=== PATIENT | male | born 1935 | race Caucasian/White ===

== ENCOUNTER 2018-11-27 19:40 | Inpatient (IN) | payer BC, MEDICARE ==
--- NOTE | 2018-11-27 19:58 | ERNOTE ---
<Ludin Peck - Last Filed: 11/27/18 19:48> Neuro HPI ER Record Date of Service: 11/27/18 Presenting Symptoms: weakness, confusion, difficulty walking, difficulty standing Time Seen by Provider: 11/27/18 19:45 Source: EMS Exam Limitations: clinical condition Home Medications: HOME MEDICATIONS Allopurinol [Zyloprim (Allopurinol)] 200 mg PO DAILY 11/27/18 [Last Taken Unknown] Aspirin [Aspirin EC] 81 mg PO DAILY 11/27/18 [Last Taken Unknown] Benazepril HCl 5 mg PO DAILY 11/27/18 [Last Taken Unknown] Calc/D3/Mag/Zn/Marline/Luis Eduardo/[place] [Calcium 600 mg Plus Vit D Tab] 1 ea PO QPM 11/27/18 [Last Taken Unknown] DULoxetine HCL [Cymbalta] 30 mg PO DAILY PRN 11/27/18 [Last Taken Unknown] Finasteride [Proscar] 5 mg PO DAILY 11/27/18 [Last Taken Unknown] Glucosam/Chondr/Collagn/Hyalur [Glucosamine & Chondroitin Cap] 1 ea PO DAILY 11/27/18 [Last Taken Unknown] HYDROcodone/ACETAMINOPHEN [[place] 10-325 Tablet] 1 ea PO BID PRN 11/27/18 [Last Taken Unknown] Isosorbide Mononitrate [Imdur] 30 mg PO DAILY 11/27/18 [Last Taken Unknown] Magnesium 100 mg PO BID 11/27/18 [Last Taken Unknown] Methylcellulose [Citrucel] 479 gm PO DAILY 11/27/18 [Last Taken Unknown] Metoprolol Tartrate [Lopressor] 50 mg PO BID 11/27/18 [Last Taken Unknown] Modafinil [Provigil] 100 mg PO BID PRN 11/27/18 [Last Taken Unknown] Nitroglycerin 0.4 mg SUBLINGUAL Q5M PRN 11/27/18 [Last Taken Unknown] [place]-3 Acid Ethyl Esters [Lovaza] 2 gm PO BID 11/27/18 [Last Taken Unknown] Rivaroxaban [Xarelto] 15 mg PO QPM 11/27/18 [Last Taken Unknown] Torsemide [Demadex] 10 mg PO PRN PRN 11/27/18 [Last Taken Unknown] rOPINIRole HCL [Requip] 0.25 mg PO QPM 11/27/18 [Last Taken Unknown] - History of Present Illness Narrative: patient last seen on thursday , friends went to check patient on floor,unable to understand patient speech garbled Onset: cannot confirm onset Severity: severe Context: injury - head - Character of Deficits Additional Deficits: Present: impaired speech, difficulty swallowing, decrease ability to stand, decrease ability to walk, off balance Baseline Cognition: Present: alert, oriented x 4, alert but disoriented to time Baseline Gait: Present: walks w/o assistance Review of Systems - Narrative Narrative: unable to obtaiin ros due to patient condition - Review of Systems Constitutional: Present: See HPI, weakness, fatigue, malaise EYE: Present: no symptoms reported ENT: Present: no symptoms reported Respiratory: Present: no symptoms reported Cardiology: Present: no symptoms reported Gastrointestinal/Abdominal: Present: no symptoms reported Genitourinary: Present: no symptoms reported Musculoskeletal: Present: no symptoms reported Skin: Present: no symptoms reported Neurological: Present: no symptoms reported Endocrine: Present: no symptoms reported Hematologic/Lymphatic: Present: no symptoms reported Psych: Present: no symptoms reported All Other Systems: All systems neg except as marked Social History: Preferred Language Ugandan No Social History Section defined Physical Exam - Physical Exam General Appearance: Present: moderate distress, lethargic Head Exam: Present: other - abraision to left yazdanism Eye Exam: Normal inspection: bilateral, PERRL: bilateral, EOMI: bilateral Ears, Nose, Throat: Present: normal ENT inspection, normal pharynx Neck: Present: normal inspection, nontender Respiratory: Present: no respiratory distress, normal breath sounds, no accessory muscle use, chest nontender, lungs clear Cardiovascular/Chest: Present: tachycardia Gastrointestinal/Abdominal: Present: normal bowel sounds, nontender, nondistended, soft, no organomegaly, other - decubitus ulcer to left chest wall Back Exam: Present: normal inspection Extremity Exam: Present: normal inspection Neurological Exam: Present: disoriented to person, disoriented to time, disoriented to place, disoriented to situation Raymond Coma Scale - Assess Eye Opening: To Voice Motor: Localizes to Pain Verbal: Confused - Total Coma Scale Total: 12 Progress - Date and Time Seen: Date and Time: 11/27/18 19:53 to be admitted - Vital Signs Patient's Vital Signs:: I have reviewed the patient's vital signs. - Transfer of Care Physician Sign Out: Ludin Peck Receiving Physician: Poonam Santiago Expected Disposition: Admit Plan - Plan Plan: to be admitted Departure Clinical Impression: CVA (cerebral vascular accident) - Departure Disposition: Still a patient Condition: Serious Referrals: Che Llanos, BRUNA [Primary Care Provider] - <Poonam Santiago - Last Filed: 11/27/18 21:29> Neuro HPI ER Record Immunizations: IMMUNIZATION HX Immunizations Up to Date Yes Medical History (Last Updated 11/27/18 @ 20:01 by Kayla Purvis, RN) Anticoagulant long-term use BPH (benign prostatic hyperplasia) Family history unknown Gout Hypertension Myocardial infarct Neuropathy Restless leg syndrome Surgical History: Surgical History (Last Updated 11/27/18 @ 20:02 by Kayla Purvis, RN) Surgical history unknown Family History: Family History (Last Updated 11/27/18 @ 20:02 by Kayla Purvis, RN) Other Family history unknown Social History: Preferred Language Ugandan Do you have any sikhism or No cultural preference? Smoking Status Smoker, status unknown No Social History Section defined Progress - Vital Signs Vital Signs: Vital Signs 11/27/18 19:41 Temperature 36.1 C Pulse Rate 151 H Respiratory Rate 22 H Blood Pressure 155/91 H O2 Sat by Pulse Oximetry 93 Plan - Plan Plan: Taking over for Dr. Richar Perdomo, stroke workup, stroke symptoms A Fib RVR 147 rate on EKG. patient has stroke symptoms, going to CT scan. CT shows acute infarct in the right MCA distribution. Consider CTA neck and head for further evaluation if clinically indicated. Patient is in A Fib, will administer cardizem drip after cardizem bolus, and he is anticoagulated with Rivaroxiban. Discussed with cousins present, they were called to his apartment, he wasnt answering the phone, his daughter was trying to call him from [place]. His cousins came in his residence, and he was stuck between his motorized wheelchair and the door on the ground. unknown how long he was down. Admitted to Dr. Eli 1) Acute stroke 2) Acute renal failure 3) Rhabdomyolysis 4) Lactic acidosis
[2018-11-27 20:26] LABS: Hematocrit 50.9 % (42.0-52.0); Hemoglobin 16.9 gm/dL (13.5-18.0); Mean Cell Volume 86.1 fl (78-100); Mean Corpuscular Hemoglobin 28.6 pg (27-31); Mean Corpuscular Hgb Conc 33.2 g/dl (32-36); Neutrophil # 10.9 K/mm3 (1.3-6.0); Neutrophil % 81.2 % (42-75.0); Platelet Count 202 K/mm3 (150-450); Red Blood Count 5.91 M/mm3 (4.7-6.0); Red Cell Distribution Width 17.4 % (11.5-14.0); White Blood Count 13.4 K/mm3 (4.0-10.5)
[2018-11-27] MEDS ORDERED: DILTIAZEM HCL 5 MG/ML VIAL IV ONE (20:34)
[2018-11-27] MEDS ORDERED: DILTIAZEM HCL 125 MG in DEXTROSE 5 % IN WATER 100 ML IV PRN ×2 (20:35)
[2018-11-27] MEDS ORDERED: NORMAL SALINE 1,000 ML IV ONE ×2 (20:54→21:28)
[2018-11-27 20:55] LABS: Albumin * 2.7 gm/dl (3.4-5.0); Anion Gap 22.4 mmol/L (6.8-13.8); BUN/Creatinine Ratio 29.2 (9.0-21.6); Bilirubin, Total 0.8 mg/dL (0.0-1.1); Ca. Corrected For Albumin 9.6 mg/dL (8.4-10.2); Calcium * 8.9 mg/dL (7.9-10.9); Carbon Dioxide 17.5 mmol/L (24-32.6); Potassium 4.9 mmol/L (3.4-4.6); Total Protein 7.2 gm/dL (6.2-8.2)
[2018-11-27 21:10] LABS: Urine Appearance Slightly Cloudy (CLEAR); Urine Bilirubin Negative (NEGATIVE); Urine Blood 250 /ul (NEGATIVE); Urine Color Yellow; Urine Ketone Negative (NEGATIVE)
[2018-11-27 21:11] LABS: Urine Nitrite Negative (NEGATIVE); Urine Protein 100 mg/dL (NEGATIVE); Urine RBC >50 /hpf (0-5); Urine Urobilinogen Normal (NORMAL); Urine WBC 0-5 /hpf (0-5)
[2018-11-27 21:13] LABS: Urine Amorphous Sediment Few - 1+ (NONE-FEW); Urine Bacteria TRACE
[2018-11-27 21:22] LABS: CRP 21.1 mg/dL (0.0-0.9)
[2018-11-27] MEDS: NORMAL SALINE 1,000 ML IV PRN (23:24)
[2018-11-28] MEDS ORDERED: DILTIAZEM HCL 5 MG/ML VIAL IV ONE
[2018-11-28] MEDS ORDERED: ACETAMINOPHEN 325 MG TABLET PO ONE (00:01)
[2018-11-28] MEDS ORDERED: traMADol HCL 50 MG TABLET PO ONE (00:08)
[2018-11-28] MEDS: MUPIROCIN 22 APPL TUBE TP SCH ×3 (00:34→20:52)
[2018-11-28] MEDS: DILTIAZEM HCL 30 MG TABLET PO SCH ×2 (01:54→06:47)
[2018-11-28 06:48] LABS: Hematocrit 45.7 % (42.0-52.0); Hemoglobin 15.3 gm/dL (13.5-18.0); Mean Cell Volume 85.9 fl (78-100); Mean Corpuscular Hemoglobin 28.8 pg (27-31); Mean Corpuscular Hgb Conc 33.5 g/dl (32-36); Neutrophil # 8.7 K/mm3 (1.3-6.0); Neutrophil % 80.3 % (42-75.0); Platelet Count 165 K/mm3 (150-450); Red Blood Count 5.32 M/mm3 (4.7-6.0); Red Cell Distribution Width 17.1 % (11.5-14.0); White Blood Count 10.9 K/mm3 (4.0-10.5)
[2018-11-28] MEDS: NORMAL SALINE 1,000 ML IV PRN (06:48)
[2018-11-28 07:18] LABS: Albumin * 2.5 gm/dl (3.4-5.0); Anion Gap 18.1 mmol/L (6.8-13.8); BUN/Creatinine Ratio 33.6 (9.0-21.6); Bilirubin, Total 0.8 mg/dL (0.0-1.1); Ca. Corrected For Albumin 9.4 mg/dL (8.4-10.2); Calcium * 8.5 mg/dL (7.9-10.9); Carbon Dioxide 22.6 mmol/L (24-32.6); Potassium 3.7 mmol/L (3.4-4.6); Total Protein 6.7 gm/dL (6.2-8.2)
[2018-11-28] MEDS: DEXTROSE 5%-0.5 NORMAL SALINE 1,000 ML IV PRN ×2 (11:23→20:59)
[2018-11-28] MEDS: ISOSORBIDE MONONITRATE 30 MG TAB.SR.24H PO SCH (12:14)
[2018-11-28] MEDS: METOPROLOL TARTRATE 50 MG TABLET PO SCH (12:15)
[2018-11-28] MEDS: FINASTERIDE 5 MG TABLET PO SCH (12:15)
--- NOTE | 2018-11-28 12:24 | HP ---
Chief Complaint - Chief Complaint Date of Service: 11/28/18 Time of Service: 11:40 Chief Complaint: Confusion and weakness History of Present Illness: This is an 83-year-old male with a past medical history of BPH, hypertension, gout, neuropathy, restless leg syndrome, long-term anticoagulation use. Who presents from home with confusion and weakness. He was last seen normal 3 days prior to presentation. His daughter who lives in [place] was trying to get a hold of him via the phone but he was not answering, therefore she called his cousins who came to check on him. His cousin found him on the floor stuck between his motorized wheelchair and the daughter. Nobody knows how long he was down. In the emergency department he was found to be in A. fib with RVR heart rate of 147. He was confused with garbled speech. CT head was done that showed loss of faria-white differentiation of the right superior temporal lobe and the right parietal lobe which could represent acute/subacute infarct versus chronic infarct. He had no focal deficits on exam. He was given Cardizem with good resolution of his tachycardia. He was found to also have rhabdomyolysis with elevated CK in the 7000's and was given IV fluid boluses. Lactic acid was also found to be elevated. He was also seen to have abnormal renal function likely secondary to the rhabdo.He was admitted to the inpatient [facility] for further evaluation and monitoring. Medical History (Last Reviewed 11/27/18 @ 22:57 by Ifrah Marcos RN) Anticoagulant long-term use BPH (benign prostatic hyperplasia) Family history unknown Gout Hypertension Myocardial infarct Neuropathy Restless leg syndrome Surgical History: Surgical History (Last Reviewed 11/27/18 @ 22:56 by Ifrah Marcos RN) Surgical history unknown Family History: Family History (Last Reviewed 11/27/18 @ 22:56 by Ifrah Marcos RN) Other Family history unknown Social History: Patient Lives/Resources Home Utilized Occupation Retired Preferred Language Puerto Rican Do you have any nondenominational or No cultural preference? Smoking Status Unknown if ever smoked Have you smoked in the past 12 No: Unknown months No Social History Section defined Review Of Systems (GEN) - Review of Systems Generalized/Overall Review: Present: Weakness, Fatigue Respiratory: Absent: Shortness of Breath Cardiac: Absent: Chest Pain Abdominal: Absent: Nausea, Vomiting, Abdominal Pain Genitourinary: Present: Incontinent Musculoskeletal: Present: Joint Pain Skin: Present: Lesions Misc: All systems neg except as marked Immunizations: IMMUNIZATION HX Immunizations Up to Date Yes Allergies/Adverse Reactions: Allergies Allergy/AdvReac Type Severity Reaction Status Date / Time Cephalosporins Allergy Verified 11/27/18 22:52 Home Medications: HOME MEDICATIONS Allopurinol [Zyloprim (Allopurinol)] 200 mg PO DAILY 11/27/18 [Last Taken Unknown] Aspirin [Aspirin EC] 81 mg PO DAILY 11/27/18 [Last Taken Unknown] Benazepril HCl 5 mg PO DAILY 11/27/18 [Last Taken Unknown] Calc/D3/Mag/Zn/Marline/Luis Eduardo/[place] [Calcium 600 mg Plus Vit D Tab] 1 ea PO QPM 11/27/18 [Last Taken Unknown] DULoxetine HCL [Cymbalta] 30 mg PO DAILY PRN 11/27/18 [Last Taken Unknown] Finasteride [Proscar] 5 mg PO DAILY 11/27/18 [Last Taken Unknown] Glucosam/Chondr/Collagn/Hyalur [Glucosamine & Chondroitin Cap] 1 ea PO DAILY 11/27/18 [Last Taken Unknown] HYDROcodone/ACETAMINOPHEN [[place] 10-325 Tablet] 1 ea PO BID PRN 11/27/18 [Last Taken Unknown] Isosorbide Mononitrate [Imdur] 30 mg PO DAILY 11/27/18 [Last Taken Unknown] Magnesium 100 mg PO BID 11/27/18 [Last Taken Unknown] Methylcellulose [Citrucel] 479 gm PO DAILY 11/27/18 [Last Taken Unknown] Metoprolol Tartrate [Lopressor] 50 mg PO BID 11/27/18 [Last Taken Unknown] Modafinil [Provigil] 100 mg PO BID PRN 11/27/18 [Last Taken Unknown] Nitroglycerin 0.4 mg SUBLINGUAL Q5M PRN 11/27/18 [Last Taken Unknown] [place]-3 Acid Ethyl Esters [Lovaza] 2 gm PO BID 11/27/18 [Last Taken Unknown] Rivaroxaban [Xarelto] 15 mg PO QPM 11/27/18 [Last Taken Unknown] Torsemide [Demadex] 10 mg PO PRN PRN 11/27/18 [Last Taken Unknown] rOPINIRole HCL [Requip] 0.25 mg PO QPM 11/27/18 [Last Taken Unknown] Exam - Exam Vital Signs: Vital Signs - Last Taken Temp 36.0 C 11/28/18 10:38 Pulse 118 H 11/28/18 11:07 Resp 24 H 11/28/18 10:38 BP 137/80 11/28/18 10:38 Pulse Ox 100 11/28/18 10:38 Constitutional: Present: Alert, Oriented x3, Cooperative ENT Exam: Present: hard of hearing Neck: Present: non-tender, supple, trachea midline. Absent: lymphadenopathy (R), lymphadenopathy (L) Respiratory: Present: lungs clear. Absent: no accessory muscle use, crackles, rhonchi, wheezing Cardiovascular/Chest: Present: normal peripheral pulses, no murmur, irregularly irregular Peripheral Pulses: dorsalis-pedis (R): 2+, dorsalis-pedis (L): 2+ Abdomen: Present: Normal bowel sounds, soft, nontender Extremity: Present: no pedal edema Skin Exam: Present: normal color, warm/dry, other - Multiple bruises on upper extremities (forearms, right knee). Multiple skin tears and large wounds on left face, left upper abdomen, left upper arm. 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 Absent: motor weakness Diagnostic Studies: Abnormal Lab Results 11/27/18 11/27/18 11/27/18 Range/Units 20:20 20:20 20:20 WBC 13.4 H (4.0-10.5) K/mm3 RDW 17.4 H (11.5-14.0) % Immature Gran % (Auto) 0.60 H (0.001-0.429) % Immature Gran # (Auto) 0.08 H (0.000-0.0310) K/mm3 Neutrophils % 81.2 H (42-75.0) % Lymphocytes % 7.5 L (20-51) % Monocytes % 10.4 H (0.0-9) % Neutrophils # 10.9 H (1.3-6.0) K/mm3 Lymphocytes # 1.00 L (1.5-3.5) k/mm3 Monocytes # 1.4 H (0.0-1.0) k/mm3 Sodium (132-142) mmol/L Plasma Sodium 143 H (130-142) mmol/L Potassium 4.9 H (3.4-4.6) mmol/L Chloride 107 H (97-106) mmol/L Carbon Dioxide 17.5 L (24-32.6) mmol/L Anion Gap 22.4 H (6.8-13.8) mmol/L BUN 101 H (6-23) mg/dL Creatinine 3.46 H (0.4-1.4) mg/dL Est GFR (Non-Af Amer) 18 L (60-130) mL/min BUN/Creatinine Ratio 29.2 H (9.0-21.6) Random Glucose 168 H (70-110) mg/dL Lactic Acid, Venous 3.9 H* (0.4-2.0) mmol/L AST 364 H (0-48) U/L ALT 121 H (19-67) U/L Creatine Kinase 7943 H (0-259) U/L C-Reactive Prot, Quant 21.1 H (0.0-0.9) mg/dL Albumin 2.7 L (3.4-5.0) gm/dl Urine Protein (NEGATIVE) mg/dL Urine Blood (NEGATIVE) /ul Prot Sulfosalicylic Acd (0) mg/dL Urine RBC (0-5) /hpf 11/27/18 11/27/18 11/28/18 Range/Units 21:06 23:00 06:40 WBC 10.9 H (4.0-10.5) K/mm3 RDW 17.1 H (11.5-14.0) % Immature Gran % (Auto) 0.60 H (0.001-0.429) % Immature Gran # (Auto) 0.06 H (0.000-0.0310) K/mm3 Neutrophils % 80.3 H (42-75.0) % Lymphocytes % 7.9 L (20-51) % Monocytes % 10.9 H (0.0-9) % Neutrophils # 8.7 H (1.3-6.0) K/mm3 Lymphocytes # 0.86 L (1.5-3.5) k/mm3 Monocytes # 1.2 H (0.0-1.0) k/mm3 Sodium (132-142) mmol/L Plasma Sodium (130-142) mmol/L Potassium (3.4-4.6) mmol/L Chloride (97-106) mmol/L Carbon Dioxide (24-32.6) mmol/L Anion Gap (6.8-13.8) mmol/L BUN (6-23) mg/dL Creatinine (0.4-1.4) mg/dL Est GFR (Non-Af Amer) (60-130) mL/min BUN/Creatinine Ratio (9.0-21.6) Random Glucose (70-110) mg/dL Lactic Acid, Venous 2.2 H* (0.4-2.0) mmol/L AST (0-48) U/L ALT (19-67) U/L Creatine Kinase (0-259) U/L C-Reactive Prot, Quant (0.0-0.9) mg/dL Albumin (3.4-5.0) gm/dl Urine Protein 100 H (NEGATIVE) mg/dL Urine Blood 250 H (NEGATIVE) /ul Prot Sulfosalicylic Acd 4+ H (0) mg/dL Urine RBC >50 H (0-5) /hpf 11/28/18 Range/Units 06:40 WBC (4.0-10.5) K/mm3 RDW (11.5-14.0) % Immature Gran % (Auto) (0.001-0.429) % Immature Gran # (Auto) (0.000-0.0310) K/mm3 Neutrophils % (42-75.0) % Lymphocytes % (20-51) % Monocytes % (0.0-9) % Neutrophils # (1.3-6.0) K/mm3 Lymphocytes # (1.5-3.5) k/mm3 Monocytes # (0.0-1.0) k/mm3 Sodium 148 H (132-142) mmol/L Plasma Sodium 149 H (130-142) mmol/L Potassium (3.4-4.6) mmol/L Chloride 111 H (97-106) mmol/L Carbon Dioxide 22.6 L (24-32.6) mmol/L Anion Gap 18.1 H (6.8-13.8) mmol/L BUN 95 H (6-23) mg/dL Creatinine 2.83 H D (0.4-1.4) mg/dL Est GFR (Non-Af Amer) 23 L D (60-130) mL/min BUN/Creatinine Ratio 33.6 H (9.0-21.6) Random Glucose 135 H (70-110) mg/dL Lactic Acid, Venous (0.4-2.0) mmol/L AST 323 H (0-48) U/L ALT 112 H (19-67) U/L Creatine Kinase 6501 H (0-259) U/L C-Reactive Prot, Quant (0.0-0.9) mg/dL Albumin 2.5 L (3.4-5.0) gm/dl Urine Protein (NEGATIVE) mg/dL Urine Blood (NEGATIVE) /ul Prot Sulfosalicylic Acd (0) mg/dL Urine RBC (0-5) /hpf Laboratory Results WBC 10.9 K/mm3 (4.0-10.5) H 11/28/18 06:40 RBC 5.32 M/mm3 (4.7-6.0) 11/28/18 06:40 Hgb 15.3 gm/dL (13.5-18.0) 11/28/18 06:40 Hct 45.7 % (42.0-52.0) 11/28/18 06:40 MCV 85.9 fl (78-100) 11/28/18 06:40 MCH 28.8 pg (27-31) 11/28/18 06:40 MCHC 33.5 g/dl (32-36) 11/28/18 06:40 RDW 17.1 % (11.5-14.0) H 11/28/18 06:40 Plt Count 165 K/mm3 (150-450) 11/28/18 06:40 MPV 10.0 fl (8-11.3) 11/28/18 06:40 Immature Gran % (Auto) 0.60 % (0.001-0.429) H 11/28/18 06:40 Immature Gran # (Auto) 0.06 K/mm3 (0.000-0.0310) H 11/28/18 06:40 Neutrophils % 80.3 % (42-75.0) H 11/28/18 06:40 Lymphocytes % 7.9 % (20-51) L 11/28/18 06:40 Monocytes % 10.9 % (0.0-9) H 11/28/18 06:40 Eosinophils % 0.0 % (0.0-3.0) 11/28/18 06:40 Basophils % 0.3 % (0.0-1.0) 11/28/18 06:40 Nucleated RBC % 0.0 k/mm3 (0-1) 11/28/18 06:40 Neutrophils # 8.7 K/mm3 (1.3-6.0) H 11/28/18 06:40 Lymphocytes # 0.86 k/mm3 (1.5-3.5) L 11/28/18 06:40 Monocytes # 1.2 k/mm3 (0.0-1.0) H 11/28/18 06:40 Eosinophils # 0.0 k/mm3 (0.0-0.7) 11/28/18 06:40 Absolute Basophils 0.0 k/mm3 (0.0-0.1) 11/28/18 06:40 Sodium 148 mmol/L (132-142) H 11/28/18 06:40 Plasma Sodium 149 mmol/L (130-142) H 11/28/18 06:40 Potassium 3.7 mmol/L (3.4-4.6) D 11/28/18 06:40 Chloride 111 mmol/L (97-106) H 11/28/18 06:40 Carbon Dioxide 22.6 mmol/L (24-32.6) L 11/28/18 06:40 Anion Gap 18.1 mmol/L (6.8-13.8) H 11/28/18 06:40 BUN 95 mg/dL (6-23) H 11/28/18 06:40 Creatinine 2.83 mg/dL (0.4-1.4) H D 11/28/18 06:40 Est GFR (Non-Af Amer) 23 mL/min (60-130) L D 11/28/18 06:40 BUN/Creatinine Ratio 33.6 (9.0-21.6) H 11/28/18 06:40 Random Glucose 135 mg/dL (70-110) H 11/28/18 06:40 Lactic Acid, Venous 1.5 mmol/L (0.4-2.0) 11/28/18 06:40 Calcium 8.5 mg/dL (7.9-10.9) 11/28/18 06:40 Calcium Adj for Albumin 9.4 mg/dL (8.4-10.2) 11/28/18 06:40 Total Bilirubin 0.8 mg/dL (0.0-1.1) 11/28/18 06:40 AST 323 U/L (0-48) H 11/28/18 06:40 ALT 112 U/L (19-67) H 11/28/18 06:40 Alkaline Phosphatase 131 U/L (50-170) 11/28/18 06:40 Creatine Kinase 6501 U/L (0-259) H 11/28/18 06:40 C-Reactive Prot, Quant 21.1 mg/dL (0.0-0.9) H 11/27/18 20:20 Total Protein 6.7 gm/dL (6.2-8.2) 11/28/18 06:40 Albumin 2.5 gm/dl (3.4-5.0) L 11/28/18 06:40 Urine Color Yellow 11/27/18 21:06 Urine Appearance Slightly cloudy (CLEAR) 11/27/18 21:06 Urine pH 6.0 pH (5.0-7.0) 11/27/18 21:06 Ur Specific Mallory 1.030 SP.GR. (1.005-1.030) 11/27/18 21:06 Urine Protein 100 mg/dL (NEGATIVE) H 11/27/18 21:06 Urine Glucose (UA) Negative mg/dL (NEGATIVE) 11/27/18 21:06 Urine Ketones Negative mg/dL (NEGATIVE) 11/27/18 21:06 Urine Blood 250 /ul (NEGATIVE) H 11/27/18 21:06 Urine Nitrate Negative (NEGATIVE) 11/27/18 21:06 Urine Bilirubin Negative mg/dl (NEGATIVE) 11/27/18 21:06 Prot Sulfosalicylic Acd 4+ mg/dL (0) H 11/27/18 21:06 Urine Urobilinogen Normal EU/dl (NORMAL) 11/27/18 21:06 Ur Leukocyte Esterase Negative /ul (NEGATIVE) 11/27/18 21:06 Urine RBC >50 /hpf (0-5) H 11/27/18 21:06 Urine WBC 0-5 /hpf (0-5) 11/27/18 21:06 Ur Epithelial Cells 0-5 /hpf (0-5) 11/27/18 21:06 Amorphous Sediment Few - 1+ (NONE-FEW) 11/27/18 21:06 Urine Bacteria Trace (NONE) 11/27/18 21:06 Urine Culture Comments No culture indicated 11/27/18 21:06 Assessment/Plan - Narrative Narrative: This is an 83-year-old male with a past medical history of BPH, hypertension, gout, neuropathy, restless leg syndrome, long-term anticoagulation use. Who presents from home with confusion and weakness. He was found to have in A. fib with RVR heart rate of 147. CT head was done that showed loss of faria-white differentiation of the right superior temporal lobe and the right parietal lobe which could represent acute/subacute infarct versus chronic infarct. He had no focal deficits on exam. He was given Cardizem with good resolution of his tachycardia. He was found to also have rhabdomyolysis with elevated CK in the 7000's and was given IV fluid boluses. Lactic acid was also found to be elevated. He was also seen to have abnormal renal function likely secondary to the rhabdo. - Assessment/Plan (1) CVA (cerebral vascular accident) Assessment: Patient had a CT hand done approximately 1-1/2 years ago and at that time there was no evidence of stroke per the patient's daughter Diya. Therefore the stroke is likely new. Patient continues to have some muffled speech, but does not appear to have any focal deficits of his extremities. Movement is limited by pain primarily. Restart him on aspirin, check lipid profile, start statin daily, resume beta-blockers and Xarelto. Problem: Acute Qualifiers: Precerebral and cerebral artery: middle cerebral artery Laterality of affected vessel: right (2) Rhabdomyolysis Assessment: In setting of stroke and subsequent immobility for 2-3 days. Improving, con't IVF. Monitor CK. Problem: Acute Qualifiers: Rhabdomyolysis type: traumatic Encounter type: initial encounter Qualified Code(s): T79.6XXA - Traumatic ischemia of muscle, initial encounter (3) LOBO (acute kidney injury) Assessment: Likely secondary to dehydration and Rhabdomyolysis. He has a h/o CKD per his daughter and sees a salt grinder. Monitor renal function. Con't IVF. Problem: Acute (4) Atrial fibrillation with RVR Assessment: He follows with Dr. Miramontes (beauty culturist) in [place]. He has been on anticoagulation and beta blockers. Daughter Diya is unsure as to why he takes these medications. He likely has a h/o Afib. Will attempt to get more info from Dr. Miramontes's office tomorrow. Restart metoprolol, ASA and anticoagulation. Problem: Chronic (5) HTN (hypertension) Assessment: Improved, holding Benzapril because of LOBO. Problem: Chronic (6) Lactic acid acidosis Assessment: Resolved. Problem: Resolved (7) Elevated LFTs Assessment: Likely secondary to anorexia for 2-3 days. Improving, con't to monitor. Problem: Acute (8) Acute hypernatremia Assessment: Start D5 1/2 NS and monitor sodium level. Problem: Acute (9) Skin abrasion Assessment: Secondary to fall. Con't with wound care per nursing. Problem: Acute (10) Urinary retention due to benign prostatic hyperplasia Assessment: Bladder scan and straight cath if post void residual is > 350cc. Restart finasteride. Problem: Acute
[2018-11-28] MEDS: ASPIRIN 81 MG TABLET.DR PO SCH (13:52)
[2018-11-28 17:20] LABS: Albumin * 2.1 gm/dl (3.4-5.0); Anion Gap 17.8 mmol/L (6.8-13.8); BUN/Creatinine Ratio 36.7 (9.0-21.6); Bilirubin, Total 0.6 mg/dL (0.0-1.1); Ca. Corrected For Albumin 9.2 mg/dL (8.4-10.2); Carbon Dioxide 20.5 mmol/L (24-32.6); Chol/HDL Risk Ratio 3.8 mg/dL (3.3-5.0); Potassium 3.3 mmol/L (3.4-4.6); Total Protein 5.7 gm/dL (6.2-8.2)
[2018-11-28] MEDS: SIMVASTATIN 40 MG TABLET PO SCH (20:51)
[2018-11-29] MEDS: METOPROLOL TARTRATE 50 MG TABLET PO SCH ×2 (00:20→12:55)
[2018-11-29] MEDS: ACETAMINOPHEN 325 MG TABLET PO PRN ×2 (00:20→08:30)
[2018-11-29 06:10] LABS: Hematocrit 39.5 % (42.0-52.0); Hemoglobin 12.9 gm/dL (13.5-18.0); Mean Cell Volume 86.8 fl (78-100); Mean Corpuscular Hemoglobin 28.4 pg (27-31); Mean Corpuscular Hgb Conc 32.7 g/dl (32-36); Neutrophil # 6.5 K/mm3 (1.3-6.0); Neutrophil % 75.9 % (42-75.0); Platelet Count 127 K/mm3 (150-450); Red Blood Count 4.55 M/mm3 (4.7-6.0); Red Cell Distribution Width 16.9 % (11.5-14.0); White Blood Count 8.6 K/mm3 (4.0-10.5)
[2018-11-29 06:38] LABS: Anion Gap 15.4 mmol/L (6.8-13.8); BUN/Creatinine Ratio 37.8 (9.0-21.6); Bilirubin, Total 0.7 mg/dL (0.0-1.1); Ca. Corrected For Albumin 8.8 mg/dL (8.4-10.2); Calcium * 7.5 mg/dL (7.9-10.9); Carbon Dioxide 20.1 mmol/L (24-32.6); Potassium 3.5 mmol/L (3.4-4.6); Total Protein 5.3 gm/dL (6.2-8.2)
[2018-11-29] MEDS: DEXTROSE 5%-0.5 NORMAL SALINE 1,000 ML IV PRN ×2 (07:06→18:29)
[2018-11-29] MEDS: FINASTERIDE 5 MG TABLET PO SCH (08:30)
[2018-11-29] MEDS: MUPIROCIN 22 APPL TUBE TP SCH ×2 (08:30→20:59)
[2018-11-29] MEDS: ASPIRIN 81 MG TABLET.DR PO SCH (08:30)
[2018-11-29] MEDS: ISOSORBIDE MONONITRATE 30 MG TAB.SR.24H PO SCH (08:30)
[2018-11-29] MEDS ORDERED: HYDROcodone/ACETAMINOPHEN 1 EACH TABLET PO ONE (11:14)
--- NOTE | 2018-11-29 11:48 | PN ---
Subjective - Date and Time Seen Date: 11/29/18 Time: 11:32 Subjective Narrative: Denies pain when he is resting in the bed, however when he moves he has pain in his left hip and left shoulder. Denies chest pain shortness of breath abdominal pain. He is tolerating liquid intake with no difficulty. He wants to start seeing a physical therapist. Objective - Review of Systems Generalized/Overall Review: Denies: Fever Respiratory: Denies: Shortness of Breath Cardiac: Denies: Chest Pain Abdominal: Denies: Abdominal Pain, Constipation Genitourinary Symptoms: Reports: Hesitancy Musculoskeletal Complaints: Reports: Joint Pain Skin: Reports: Lesions Misc: All systems neg except as marked - Vitals Vitals: Last Vital Signs Temp 36.5 C 11/29/18 06:40 Pulse 100 11/29/18 08:30 Resp 14 11/29/18 06:40 BP 139/64 11/29/18 08:30 Pulse Ox 97 11/29/18 06:40 - Abnormal Lab Findings Abnormal Lab Findings: Abnormal Lab Results 11/28/18 11/29/18 11/29/18 Range/Units 16:53 06:00 06:00 RBC 4.55 L (4.7-6.0) M/mm3 Hgb 12.9 L (13.5-18.0) gm/dL Hct 39.5 L (42.0-52.0) % RDW 16.9 H (11.5-14.0) % Plt Count 127 L (150-450) K/mm3 Immature Gran % (Auto) 0.50 H (0.001-0.429) % Immature Gran # (Auto) 0.04 H (0.000-0.0310) K/mm3 Neutrophils % 75.9 H (42-75.0) % Lymphocytes % 10.3 L (20-51) % Monocytes % 10.5 H (0.0-9) % Neutrophils # 6.5 H (1.3-6.0) K/mm3 Lymphocytes # 0.88 L (1.5-3.5) k/mm3 Sodium 150 H 144 H (132-142) mmol/L Plasma Sodium 151 H 145 H (130-142) mmol/L Potassium 3.3 L (3.4-4.6) mmol/L Chloride 115 H 112 H (97-106) mmol/L Carbon Dioxide 20.5 L 20.1 L (24-32.6) mmol/L Anion Gap 17.8 H 15.4 H (6.8-13.8) mmol/L BUN 91 H 71 H (6-23) mg/dL Creatinine 2.48 H 1.88 H D (0.4-1.4) mg/dL Est GFR (Non-Af Amer) 26 L 36 L D (60-130) mL/min BUN/Creatinine Ratio 36.7 H 37.8 H (9.0-21.6) Random Glucose 182 H D 143 H (70-110) mg/dL Calcium 7.5 L (7.9-10.9) mg/dL AST 228 H 203 H (0-48) U/L ALT 93 H 91 H (19-67) U/L Creatine Kinase 4205 H 2762 H (0-259) U/L Total Protein 5.7 L 5.3 L (6.2-8.2) gm/dL Albumin 2.1 L 2.0 L (3.4-5.0) gm/dl LDL Cholesterol 43 L (70-130) mg/dL HDL Cholesterol 25 L (40-60) mg/dL - Exam Constitutional: Present: Alert, Cooperative, Well developed, No distress ENT Exam: Present: hard of hearing Neck: Present: non-tender, supple, trachea midline. Absent: lymphadenopathy (R), lymphadenopathy (L) Respiratory: Present: lungs clear, normal breath sounds, no respiratory distress, no accessory muscle use, No wheezing. Absent: crackles, rhonchi Cardiovascular/Chest: Present: normal peripheral pulses, no edema, no murmur, irregularly irregular Abdomen: Present: Normal bowel sounds, soft, nontender, nondistended Extremity: Present: no pedal edema Skin Exam: Present: normal color, warm/dry Neurologic: Present: alert Eye contact: Present: cooperative Assessment/Plan - Problems/Diagnosis (1) CVA (cerebral vascular accident) Problem: Ruled-out Qualifiers: Precerebral and cerebral artery: middle cerebral artery Laterality of affected vessel: right Narrative: Per discussion with her radiologist Dr. Mae Matias, an MRI of the brain was re commended and performed in order to determine if this was an acute stroke and in order to determine the size of the stroke. MRI of the brain showed no evidence of stroke. Age-related changes of the brain were noted, no lesions noted. Dr. Matias believes that the changes noted on CT head on November 27, 2017 were primarily artifact due to poor positioning of the patient. Etiology unclear regarding initial loss of consciousness but may have been secondary to syncope versus mechanical fall with head trauma causing loss of consciousness versus dizziness with fall. We will restart the Xarelto today because there is no risk of hemorrhagic conversion. (2) Rhabdomyolysis Problem: Acute Qualifiers: Rhabdomyolysis type: traumatic Encounter type: initial encounter Qualified Code(s): T79.6XXA - Traumatic ischemia of muscle, initial encounter Narrative: CK much improved, down trending in the 2000 this morning. IV fluids have been decreased to 100 mils per hour, continue with IV fluid hydration. (3) LOBO (acute kidney injury) Problem: Acute Narrative: Renal function improving. 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 Patient is near his baseline, we will continue with IV fluid hydration and monitoring his renal function. He follows with Romana Lin, nurse practitioner, at the front of house manager office. (4) Atrial fibrillation with RVR Problem: Chronic Narrative: Rate controlled. He has been on long-term anticoagulation with Coumadin in the past per his daughter Diya. However, they had trouble regulating his Coumadin so he was switched to Xarelto about 6 weeks ago. Xarelto currently being held in order to prevent hemorrhagic conversion of his ischemic stroke. SCDs ordered. Continue with metoprolol for rate control. MRI of the brain done today showed that there was no acute stroke, per the radiologist the CT images were likely secondary to artifact. Therefore I will restart the Xarelto today. (5) HTN (hypertension) Problem: Chronic Qualifiers: Hypertension type: essential hypertension Qualified Code(s): I10 - Essential (primary) hypertension Narrative: Stable continue current meds. (6) Lactic acid acidosis Problem: Resolved Narrative: Resolved. (7) Elevated LFTs Problem: Acute Narrative: Likely secondary to be 2-3 days of anorexia. LFTs are downtrending. Continue to monitor as needed. (8) Acute hypernatremia Problem: Acute Narrative: Sodium down trending to 144 today. Continue with D5 half-normal saline. (9) Skin abrasion Problem: Acute Narrative: Wound care consulted. Will follow the recommendations regarding dressings. (10) Urinary retention due to benign prostatic hyperplasia Problem: Acute Narrative: Improved with finasteride. No further need to straight cath. Patient has been able to urinate on his own. (11) Left hip pain Problem: Acute Narrative: Secondary to fall. He sustained multiple abrasions, contusions. X-ray of the hips negative for fracture. Continue with pain management with Tylenol as needed. (12) Unsteady gait Problem: Acute Narrative: Continue with physical therapy and occupational therapy.
--- NOTE | 2018-11-29 16:24 | CONS ---
[facility] - General Date of Service: 11/29/18 Source: family Exam Limitations: clinical condition - History of Present Illness Initial Comments: Patient is an 83 year old male, recently admitted to the hospital after a fall at home. The daughter is present, and provides all history, as the patient is sleeping. She states his family became concerned when they were unable to reach him. He was found lying at home. It is unclear as to how long the patient was incapacitated. He was evaluated in the Emergency Department, and determined to have Afib and rhabdomyelosis. He was admitted to the hospital on 11/28/2018. During admission, several abrasions and wounds were noted. The patient and family are unsure of how these occurred, however the daughter states they were not present prior to this incident. Past medical history includes BPH, hypertension, gout, neuropathy, restless leg syndrome and ad terminal makeup operator anticoagulant use. Timing/Duration: unsure Allergies/Adverse Reactions: Allergies Cephalosporins Allergy (Verified 11/27/18 22:52) Home Medications: Home Medications Medication Instructions Recorded Last Taken Allopurinol [Zyloprim 200 mg PO DAILY 11/27/18 Unknown (Allopurinol)] Aspirin [Aspirin EC] 81 mg PO DAILY 11/27/18 Unknown Calc/D3/Mag/Zn/[place]/Luis Eduardo/[place] 1 ea PO QPM 11/27/18 Unknown [Calcium 600 mg Plus Vit D Tab] DULoxetine HCL [Cymbalta] 30 mg PO DAILY PRN 11/27/18 Unknown Finasteride [Proscar] 5 mg PO DAILY 11/27/18 Unknown Glucosam/Chondr/Collagn/Hyalur 1 ea PO DAILY 11/27/18 Unknown [Glucosamine & Chondroitin Cap] HYDROcodone/ACETAMINOPHEN [Poth 1 ea PO BID PRN 11/27/18 Unknown 10-325 Tablet] Isosorbide Mononitrate [Imdur] 30 mg PO DAILY 11/27/18 Unknown Methylcellulose [Citrucel] 479 gm PO DAILY 11/27/18 Unknown Metoprolol Tartrate [Lopressor] 50 mg PO BID 11/27/18 Unknown Modafinil [Provigil] 100 mg PO BID PRN 11/27/18 Unknown [place]-3 Acid Ethyl Esters [Lovaza] 2 gm PO BID 11/27/18 Unknown RX: Benazepril HCl 5 mg PO DAILY 11/27/18 Unknown RX: Magnesium 100 mg PO BID 11/27/18 Unknown RX: Nitroglycerin 0.4 mg SUBLINGUAL Q5M PRN 11/27/18 Unknown Rivaroxaban [Xarelto] 15 mg PO QPM 11/27/18 Unknown Torsemide [Demadex] 10 mg PO PRN PRN 11/27/18 Unknown rOPINIRole HCL [Requip] 0.25 mg PO QPM 11/27/18 Unknown Procedures Insertion of intraocular lens prosthesis at time of cataract extraction, one- stage (02/16/07) Phacoemulsification and aspiration of cataract (02/16/07) Medications - Medications Current Medications: Current Medications Acetaminophen (Tylenol) 650 mg PO Q6H PRN PRN Reason: Mild pain (pain scale 1-3) Stop: 12/28/18 19:38 Last Admin: 11/29/18 08:30 Dose: 650 mg Documented by: Aspirin (Aspirin Enteric Coated) 81 mg PO DAILY [facility] Stop: 12/28/18 13:46 Last Admin: 11/29/18 08:30 Dose: 81 mg Documented by: Finasteride (Proscar) 5 mg PO DAILY [facility] Stop: 12/28/18 11:31 Last Admin: 11/29/18 08:30 Dose: 5 mg Documented by: Dextrose/Sodium Chloride (Dextrose 5%-0.45%Ns) 1,000 mls @ 100 mls/hr IV .Q10H PRN PRN Reason: HYDRATION Stop: 12/28/18 11:07 Last Admin: 11/29/18 07:06 Dose: 100 mls/hr Documented by: Isosorbide Mononitrate (Imdur) 30 mg PO DAILY [facility] Stop: 12/28/18 11:31 Last Admin: 11/29/18 08:30 Dose: 30 mg Documented by: Metoprolol Tartrate (Lopressor) 50 mg PO Q12H [facility] Stop: 12/28/18 12:31 Last Admin: 11/29/18 12:55 Dose: 50 mg Documented by: Mupirocin (Bactroban) 1 appl TP BID [facility] Stop: 12/02/18 00:31 Last Admin: 11/29/18 08:30 Dose: 1 appl Documented by: Simvastatin (Zocor) 40 mg PO HS [facility] Stop: 12/28/18 21:01 Last Admin: 11/28/18 20:51 Dose: 40 mg Documented by: Review of Systems - Review of Systems Narrative: patient is resting and does not awake to questions Physical Examination - Exam Vital Signs: Vital Signs - Last Taken Temp 36.4 C 11/29/18 15:32 Pulse 95 11/29/18 15:32 Resp 16 11/29/18 15:32 BP 113/43 11/29/18 15:32 Pulse Ox 96 11/29/18 15:32 O2 Oxygen Delivery Method Room Air Comprehensive Narative: 11/29/18 16:13 patient is resting comfortably. he does not wake during exam. Skin Exam: Present: other - multiple small abrasions throughout the body. there are two abrasions on the right knee measuring 3cm in circumference. large amount of yellow necrosis. one abrasion to the left knee measuring ~2cm in circumference. large amount of yellow necrosis. there is an open ulcer to the left upper chest measuring ~3.5cm in circumference. small amount of serous drainage. the tissue is pale. there is a hematoma on the scalp, measuring 2cm in circumference. it is intact and soft. no drainage. there is an ulcer to the left side of the face. large amount of black necrosis present. no drainage. he also has bruising outside of the necrosis. - Results and Findings: Lab/Microbiology results last 24 hrs: Abnormal/Pending Laboratory Last 24 HRS 11/29/18 11/29/18 11/28/18 06:00 06:00 16:53 RBC 4.55 L Hgb 12.9 L Hct 39.5 L RDW 16.9 H Plt Count 127 L Immature Gran % (Auto) 0.50 H Immature Gran # (Auto) 0.04 H Neutrophils % 75.9 H Lymphocytes % 10.3 L Monocytes % 10.5 H Neutrophils # 6.5 H Lymphocytes # 0.88 L Sodium 144 H 150 H Plasma Sodium 145 H 151 H Potassium 3.3 L Chloride 112 H 115 H Carbon Dioxide 20.1 L 20.5 L Anion Gap 15.4 H 17.8 H BUN 71 H 91 H Creatinine 1.88 H D 2.48 H Est GFR (Non-Af Amer) 36 L D 26 L BUN/Creatinine Ratio 37.8 H 36.7 H Random Glucose 143 H 182 H D Calcium 7.5 L AST 203 H 228 H ALT 91 H 93 H Creatine Kinase 2762 H 4205 H Total Protein 5.3 L 5.7 L Albumin 2.0 L 2.1 L LDL Cholesterol 43 L HDL Cholesterol 25 L - Assessments/Findings (1) Skin abrasion Problem: Acute (2) Hematoma of scalp Diagnosis(s): There are no signs or symptoms of infection present with these wounds at this time. Recommend using Santyl to the knee abrasions to address the yellow necrotic tissue. This will be covered with gauze and secured with tape. The dressing will be changed daily, and the areas washed thoroughly with soap and water at dressing changes. The ulcer on the left chest wall will be covered with Acticoat 7 and a Mepilex border. This will promote healing and prevent infection. The dressing will be changed every three days. The area will be washed with soap and water at dressing changes. Recommend close observation to the ulcer on the face and the hematoma. Thank you for this consultation. Problem: Acute
[2018-11-29] MEDS: COLLAGENASE CLOSTRIDIUM HIST. 30 APPL TUBE TP SCH (20:58)
[2018-11-29] MEDS: SIMVASTATIN 40 MG TABLET PO SCH ×2 (20:59→21:06)
[2018-11-29] MEDS: RIVAROXABAN 15 MG TABLET PO SCH (20:59)
[2018-11-30] MEDS: METOPROLOL TARTRATE 50 MG TABLET PO SCH ×2 (01:16→12:13)
[2018-11-30] MEDS: DEXTROSE 5%-0.5 NORMAL SALINE 1,000 ML IV PRN (04:22)
[2018-11-30 05:46] LABS: Hematocrit 37.8 % (42.0-52.0); Hemoglobin 12.5 gm/dL (13.5-18.0); Mean Cell Volume 87.3 fl (78-100); Mean Corpuscular Hemoglobin 28.9 pg (27-31); Mean Corpuscular Hgb Conc 33.1 g/dl (32-36); Mean Platelet Volume 10.2 fl (8-11.3); Neutrophil % 75.5 % (42-75.0); Platelet Count 117 K/mm3 (150-450); Red Blood Count 4.33 M/mm3 (4.7-6.0); Red Cell Distribution Width 16.4 % (11.5-14.0); White Blood Count 9.3 K/mm3 (4.0-10.5)
[2018-11-30 06:13] LABS: Anion Gap 11.9 mmol/L (6.8-13.8); BUN/Creatinine Ratio 34.8 (9.0-21.6); Bilirubin, Total 0.9 mg/dL (0.0-1.1); Calcium * 7.7 mg/dL (7.9-10.9); Carbon Dioxide 20.6 mmol/L (24-32.6); Potassium 3.5 mmol/L (3.4-4.6); Total Protein 5.2 gm/dL (6.2-8.2)
[2018-11-30] MEDS ORDERED: TORSEMIDE 10 MG TABLET PO ONE ×2 (09:11→10:15)
[2018-11-30] MEDS: FINASTERIDE 5 MG TABLET PO SCH (09:14)
[2018-11-30] MEDS: COLLAGENASE CLOSTRIDIUM HIST. 30 APPL TUBE TP SCH (09:14)
[2018-11-30] MEDS: ASPIRIN 81 MG TABLET.DR PO SCH (09:14)
[2018-11-30] MEDS: ISOSORBIDE MONONITRATE 30 MG TAB.SR.24H PO SCH (09:14)
[2018-11-30] MEDS: MUPIROCIN 22 APPL TUBE TP SCH ×2 (09:14→21:49)
[2018-11-30] MEDS: ACETAMINOPHEN 325 MG TABLET PO PRN (10:20)
--- NOTE | 2018-11-30 13:39 | PN ---
Subjective - Date and Time Seen Date: 11/30/18 Time: 12:52 Subjective Narrative: He feels tired, denies chest pain, or denies shortness of breath. Objective - Review of Systems Generalized/Overall Review: Reports: Chills, Fatigue. Denies: Fever Respiratory: Denies: Shortness of Breath Cardiac: Denies: Chest Pain Abdominal: Denies: Vomiting, Abdominal Pain Genitourinary Symptoms: Reports: Hesitancy Skin: Reports: Lesions, Bruising - Vitals Vitals: Last Vital Signs Temp 37.3 C 11/30/18 10:24 Pulse 109 H 11/30/18 12:13 Resp 24 H 11/30/18 10:24 BP 125/74 11/30/18 12:13 Pulse Ox 97 11/30/18 10:24 - Abnormal Lab Findings Abnormal Lab Findings: Abnormal Lab Results 11/30/18 11/30/18 11/30/18 Range/Units 05:40 05:40 05:40 RBC 4.33 L (4.7-6.0) M/mm3 Hgb 12.5 L (13.5-18.0) gm/dL Hct 37.8 L (42.0-52.0) % RDW 16.4 H (11.5-14.0) % Plt Count 117 L (150-450) K/mm3 Immature Gran % (Auto) 0.50 H (0.001-0.429) % Immature Gran # (Auto) 0.05 H (0.000-0.0310) K/mm3 Neutrophils % 75.5 H (42-75.0) % Lymphocytes % 9.0 L (20-51) % Monocytes % 10.0 H (0.0-9) % Eosinophils % 4.8 H (0.0-3.0) % Neutrophils # 7.0 H (1.3-6.0) K/mm3 Lymphocytes # 0.84 L (1.5-3.5) k/mm3 Chloride 108 H (97-106) mmol/L Carbon Dioxide 20.6 L (24-32.6) mmol/L BUN 47 H (6-23) mg/dL Est GFR (Non-Af Amer) 53 L D (60-130) mL/min BUN/Creatinine Ratio 34.8 H (9.0-21.6) Calcium 7.7 L (7.9-10.9) mg/dL AST 152 H (0-48) U/L ALT 83 H (19-67) U/L Creatine Kinase 2019 H (0-259) U/L Total Protein 5.2 L (6.2-8.2) gm/dL Albumin 2.0 L (3.4-5.0) gm/dl - Exam Constitutional: Present: Cooperative, Well developed, No distress, Lethargic, Elderly ENT Exam: Present: hearing grossly normal Neck: Present: non-tender, supple, trachea midline. Absent: lymphadenopathy (R), lymphadenopathy (L) Respiratory: Present: crackles - faint crackles b/l bases, no wheezes no rhonchi. Cardiovascular/Chest: Present: normal peripheral pulses, no edema, no murmur, irregularly irregular Abdomen: Present: Normal bowel sounds, soft, nontender Extremity: Present: no pedal edema Skin Exam: Present: normal color, warm/dry, other - multiple bruises/abrasions/excoriations noted on both upper and lower extremities Eye contact: Present: cooperative Thoughts: Present: other - Memory impairment and confusion Assessment/Plan - Problems/Diagnosis (1) Hypotension Problem: Acute Narrative: Patient noted to have hypotension this afternoon with with a systolic blood pressure in the 80s. He also developed fever. He has a possible underlying infection. Chest x-ray showed new left lower lobe infiltrate versus atelectasis. Awaiting results of blood cultures, urinalysis with culture. We will start the patient on Levaquin for suspected healthcare associated pneumonia. Continue gentle IV fluid hydration especially since the patient is currently drinking thickened liquids. Start incentive spirometer, start [place]. (2) Altered mental status Problem: Acute Narrative: Likely secondary to delirium versus hydrocodone in the setting of impaired renal clearance. Delirium more likely, in the setting of multiple underlying medical issues including LOBO, rhabdomyolysis, and hypernatremia. Continue with supportive care, pain management, encouraging nutrition, wound care, and as he mobility via physical therapy and occupational therapy. Delirium may be secondary to possible underlying pneumonia. I am starting the patient on Levaquin (3) Rhabdomyolysis Problem: Acute Qualifiers: Rhabdomyolysis type: traumatic Encounter type: initial encounter Qualified Code(s): T79.6XXA - Traumatic ischemia of muscle, initial encounter Narrative: Improved CK continues to down trend. (4) LOBO (acute kidney injury) Problem: Acute Narrative: Patient's renal function is back to baseline today. His normal creatinine is between 1.4 and 1.5, and his normal EGFR is in the 40s per his nephrology nurse practitioner. (5) Atrial fibrillation with RVR Problem: Chronic Narrative: Rate is typically controlled continue with metoprolol. Continue anticoagulation with Xarelto. (6) HTN (hypertension) Problem: Chronic Qualifiers: Hypertension type: essential hypertension Qualified Code(s): I10 - Essential (primary) hypertension Narrative: Well-controlled no changes to medications. (7) Lactic acid acidosis Problem: Resolved Narrative: Resolved. (8) Elevated LFTs Problem: Acute Narrative: Downtrending, elevation likely secondary to the anorexia experienced while the patient was unresponsive in his house. (9) Acute hypernatremia Problem: Acute Narrative: Resolved, likely secondary to dehydration. (10) Skin abrasion Problem: Acute Narrative: Continue with wound care per wound care nurse. (11) Urinary retention due to benign prostatic hyperplasia Problem: Acute Narrative: Improving continue with finasteride. (12) Left hip pain Problem: Acute Narrative: No hip fracture noted on hip x-ray. Continue with Tylenol as needed for pain (13) Unsteady gait Problem: Acute Narrative: Continue with PT OT therapy. (14) CVA (cerebral vascular accident) Problem: Ruled-out Qualifiers: Precerebral and cerebral artery: middle cerebral artery Laterality of affected vessel: right Narrative: Per the MRI performed on November 29, 2018 there is no evidence of a stroke.
[2018-11-30] MEDS ORDERED: NORMAL SALINE 1,000 ML IV PRN (14:39)
[2018-11-30 15:14] LABS: Hematocrit 37.2 % (42.0-52.0); Hemoglobin 12.5 gm/dL (13.5-18.0); Mean Cell Volume 86.9 fl (78-100); Mean Corpuscular Hemoglobin 29.2 pg (27-31); Mean Corpuscular Hgb Conc 33.6 g/dl (32-36); Mean Platelet Volume 10.2 fl (8-11.3); Neutrophil # 8.3 K/mm3 (1.3-6.0); Neutrophil % 79.9 % (42-75.0); Platelet Count 115 K/mm3 (150-450); Red Blood Count 4.28 M/mm3 (4.7-6.0); Red Cell Distribution Width 16.4 % (11.5-14.0); White Blood Count 10.4 K/mm3 (4.0-10.5)
[2018-11-30 15:17] LABS: Anion Gap 14.1 mmol/L (6.8-13.8); BUN/Creatinine Ratio 35.4 (9.0-21.6); Bilirubin, Total 0.9 mg/dL (0.0-1.1); Ca. Corrected For Albumin 9.2 mg/dL (8.4-10.2); Calcium * 7.9 mg/dL (7.9-10.9); Carbon Dioxide 21.4 mmol/L (24-32.6); Potassium 3.5 mmol/L (3.4-4.6); Total Protein 5.3 gm/dL (6.2-8.2)
[2018-11-30] MEDS ORDERED: DEXTROSE 5%-0.5 NORMAL SALINE 1,000 ML IV PRN (16:54)
[2018-11-30] MEDS: RIVAROXABAN 15 MG TABLET PO SCH (17:32)
[2018-11-30] MEDS: LEVOFLOXACIN IN DEXTROSE 5 % 750 MG/150 ML BAG IV SCH (17:32)
[2018-11-30 19:06] LABS: Urine Bilirubin Negative (NEGATIVE); Urine Blood 25 /ul (NEGATIVE); Urine Ketone Negative (NEGATIVE); Urine Nitrite Negative (NEGATIVE); Urine Protein Negative (NEGATIVE); Urine Specific Gravity 1.015 SP.GR. (1.005-1.030); Urine Urobilinogen Normal (NORMAL); Urine pH 5.5 pH (5.0-7.0)
[2018-11-30 19:21] LABS: Urine Appearance Clear (CLEAR); Urine Color Yellow
[2018-11-30 19:22] LABS: Urine Bacteria TRACE; Urine RBC 0-5 /hpf (0-5); Urine WBC 0-5 /hpf (0-5)
[2018-11-30] MEDS: traMADol HCL 50 MG TABLET PO PRN (21:39)
[2018-11-30] MEDS ORDERED: FUROSEMIDE 10 MG/ML VIAL IV ONE (23:38)
[2018-11-30] MEDS: ALBUTEROL SULFATE/IPRATROPIUM 3 ML NEBU IH PRN (23:55)
[2018-12-01] MEDS: METOPROLOL TARTRATE 50 MG TABLET PO SCH ×3 (00:41→21:28)
[2018-12-01 05:46] LABS: Hematocrit 38.4 % (42.0-52.0); Hemoglobin 12.8 gm/dL (13.5-18.0); Mean Cell Volume 87.7 fl (78-100); Mean Corpuscular Hemoglobin 29.2 pg (27-31); Mean Corpuscular Hgb Conc 33.3 g/dl (32-36); Neutrophil # 8.2 K/mm3 (1.3-6.0); Platelet Count 113 K/mm3 (150-450); Red Blood Count 4.38 M/mm3 (4.7-6.0); Red Cell Distribution Width 16.4 % (11.5-14.0); White Blood Count 10.3 K/mm3 (4.0-10.5)
[2018-12-01 06:11] LABS: Anion Gap 13.3 mmol/L (6.8-13.8); Ca. Corrected For Albumin 9.4 mg/dL (8.4-10.2); Calcium * 8.1 mg/dL (7.9-10.9); Carbon Dioxide 25.9 mmol/L (24-32.6); Potassium 3.2 mmol/L (3.4-4.6); Total Protein 5.7 gm/dL (6.2-8.2)
[2018-12-01] MEDS ORDERED: POTASSIUM BICARBONATE/CIT AC 25 MEQ TABLET.EFF PO ONE (08:53)
--- NOTE | 2018-12-01 09:09 | DS ---
(1) Hypotension Diagnosis(s): Resolved with volume resuscitation. Problem: Resolved Qualifiers: Hypotension type: hypotension due to hypovolemia Qualified Code(s): I95.89 - Other hypotension; E86.1 - Hypovolemia (2) Altered mental status Diagnosis(s): Likely secondary to delirium in the setting of multiple medical issues. Improved today, he is more aware of his surroundings, able to hold a conversation better, less lethargic. Problem: Acute Qualifiers: Altered mental status type: delirium Qualified Code(s): R41.0 - Disorientation, unspecified (3) Rhabdomyolysis Diagnosis(s): Continues to improve. CK downtrending. He is tolerating an oral diet and patient was becoming a little fluid overloaded as well. IV fluids have been discontinued. Problem: Resolved Qualifiers: Rhabdomyolysis type: traumatic Encounter type: initial encounter Qualified Code(s): T79.6XXA - Traumatic ischemia of muscle, initial encounter (4) LOBO (acute kidney injury) Diagnosis(s): Resolved patient is back to his baseline renal function of creatinine between 1.4-1.5 and GFR in the 40s Problem: Resolved (5) Atrial fibrillation with RVR Diagnosis(s): Rate controlled continue with anticoagulation, Xarelto. Problem: Chronic (6) HTN (hypertension) Diagnosis(s): Stable continue holding benazepril Problem: Chronic Qualifiers: Hypertension type: essential hypertension Qualified Code(s): I10 - Essential (primary) hypertension (7) Lactic acid acidosis Diagnosis(s): Resolved. Problem: Resolved (8) Elevated LFTs Diagnosis(s): Continues to down trend. Likely secondary to anorexia when the patient fell and was on the floor in his home for several days. Problem: Acute (9) Acute hypernatremia Diagnosis(s): Resolved likely secondary to dehydration. Problem: Resolved (10) Skin abrasion Diagnosis(s): Improving continue with wound care per wound care nurse Problem: Acute (11) Urinary retention due to benign prostatic hyperplasia Diagnosis(s): Improved patient urinating on his own continue with finasteride. Problem: Acute (12) Left hip pain Problem: Acute (13) Unsteady gait Diagnosis(s): Continues to be unstable on his feet. He will need intensive physical therapy in order to strengthen his muscles and from balance and gait training. Problem: Acute (14) CVA (cerebral vascular accident) Diagnosis(s): No CVA noted on the brain MRI report. 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 Likely secondary to poor oral intake. Problem: Acute (16) HAP (hospital-acquired pneumonia) Diagnosis(s): On November 30, 2018 the patient developed hypotension, fever, decreased oxygenation. Chest x-ray showed a new left lower lobe infiltrate. Patient started on Levaquin with improvement of his symptoms. Problem: Acute (17) Asymptomatic bacteriuria Diagnosis(s): Patient was noted to have an incidental finding of asymptomatic bacteriuria. Urine culture is growing Enterococcus faecalis, but he had no urinary symptoms. Urine culture was ordered mistakenly when ordered multiple labs in order to look for infectious source when he became hypotensive and febrile. The UA was negative for nitrates or leukocyte esterase therefore urine culture should not have been ordered. I am not specifically treating the bacteria however it is sensitive to Levaquin. Patient has been improving with treatment for pneumonia. Problem: Acute Description of Stay: This is an 83-year-old male who past medical history of hypertension long-term anticoagulation use secondary to atrial fibrillation BPH gout neuropathy and restless leg syndrome. He presents from home with confusion and weakness he was last seen normal 3 days prior to presentation his daughter who lived in [place] was unable to get a hold of him therefore she called family who came to check on him and they found him on the floor between the wall and his motorized wheelchair. He was confused with garbled speech, tachycardic. CT head was done that showed loss of faria-white matter differentiation of the right superior temporal lobe and right parietal lobe. It was believed that he had had a stroke. However, a brain MRI done 2 days later showed no evidence of an acute stroke. Patient was also found to have elevated CK in the 7000's, elevated la ctic acid and abnormal renal function he was admitted to the inpatient unit for further monitoring and evaluation. He was started on aggressive IV fluid hydration with good response. Electrolytes were managed and repleted as needed. During hospitalization he developed hypotension and fever workup showed showed a new left lower lobe infiltrate on chest x-ray. He was started on Levaquin for health care associated pneumonia. He should complete a 7-day course of the Levaquin, last dose will be on December 05, 2018. Patient also developed some confusion likely secondary to that delirium. Patient had an unsteady gait and was evaluated by physical therapy and they deemed that he was a good candidate for inpatient rehab. Patient also was noted to have asymptomatic bacteriuria with urine culture growing enterococcus faecalis. Procedures Performed: see notes below List Procedures: CT head and MRI of the brain. Results and Findings: Pending Mircobiology Results 11/30/18 15:25 Urine,Catheterized Urine Culture - Preliminary Alpha Hemolytic Strep Lab Pending Results 11/27/18 20:20: WBC 13.4 H, RBC 5.91, Hgb 16.9, Hct 50.9, MCV 86.1, MCH 28.6, MCHC 33.2, RDW 17.4 H, Plt Count 202, MPV 10.0, Immature Gran % (Auto) 0.60 H, I mmature Gran # (Auto) 0.08 H, Neutrophils % 81.2 H, Lymphocytes % 7.5 L, Monocytes % 10.4 H, Eosinophils % 0.0, Basophils % 0.3, Nucleated RBC % 0.0, Neutrophils # 10.9 H, Lymphocytes # 1.00 L, Monocytes # 1.4 H, Eosinophils # 0.0, Absolute Basophils 0.0 11/27/18 20:20: Sodium 142, Plasma Sodium 143 H, Potassium 4.9 H, Chloride 107 H, Carbon Dioxide 17.5 L, Anion Gap 22.4 H, BUN 101 H, Creatinine 3.46 H, Est GFR (Non-Af Amer) 18 L, BUN/Creatinine Ratio 29.2 H, Random Glucose 168 H, Calcium 8.9, Calcium Adj for Albumin 9.6, Total Bilirubin 0.8, AST 364 H, ALT 121 H, Alkaline Phosphatase 141, Creatine Kinase 7943 H, C-Reactive Prot, Quant 21.1 H, Total Protein 7.2, Albumin 2.7 L 11/27/18 20:20: Lactic Acid, Venous 3.9 H* 11/27/18 21:06: Urine Color Yellow, Urine Appearance Slightly cloudy, Urine pH 6.0, Ur Specific [place] 1.030, Urine Protein 100 H, Urine Glucose (UA) Negative, Urine Ketones Negative, Urine Blood 250 H, Urine Nitrate Negative, Urine Bilirubin Negative, Prot Sulfosalicylic Acd 4+ H, Urine Urobilinogen Normal, Ur Leukocyte Esterase Negative, Urine RBC >50 H, Urine WBC 0-5, Ur Epithelial Cells 0-5, Amorphous Sediment Few - 1+, Urine Bacteria Trace, Urine Culture Comments No culture indicated 11/27/18 23:00: Lactic Acid, Venous 2.2 H* 11/28/18 06:40: WBC 10.9 H, RBC 5.32, Hgb 15.3, Hct 45.7, MCV 85.9, MCH 28.8, MCHC 33.5, RDW 17.1 H, Plt Count 165, MPV 10.0, Immature Gran % (Auto) 0.60 H, Immature Gran # (Auto) 0.06 H, Neutrophils % 80.3 H, Lymphocytes % 7.9 L, Monocytes % 10.9 H, Eosinophils % 0.0, Basophils % 0.3, Nucleated RBC % 0.0, Neutrophils # 8.7 H, Lymphocytes # 0.86 L, Monocytes # 1.2 H, Eosinophils # 0.0, Absolute Basophils 0.0 11/28/18 06:40: Sodium 148 H, Plasma Sodium 149 H, Potassium 3.7 D, Chloride 111 H, Carbon Dioxide 22.6 L, Anion Gap 18.1 H, BUN 95 H, Creatinine 2.83 H D, Est GFR (Non-Af Amer) 23 L D, BUN/Creatinine Ratio 33.6 H, Random Glucose 135 H, Calcium 8.5, Calcium Adj for Albumin 9.4, Total Bilirubin 0.8, AST 323 H, ALT 112 H, Alkaline Phosphatase 131, Creatine Kinase 6501 H, Total Protein 6.7, Albumin 2.5 L 11/28/18 06:40: Lactic Acid, Venous 1.5 11/28/18 16:53: Sodium 150 H, Plasma Sodium 151 H, Potassium 3.3 L, Chloride 115 H, Carbon Dioxide 20.5 L, Anion Gap 17.8 H, BUN 91 H, Creatinine 2.48 H, Est GFR (Non-Af Amer) 26 L, BUN/Creatinine Ratio 36.7 H, Random Glucose 182 H D, Calcium 8.0, Calcium Adj for Albumin 9.2, Total Bilirubin 0.6, AST 228 H, ALT 93 H, Alkaline Phosphatase 119, Creatine Kinase 4205 H, Total Protein 5.7 L, Albumin 2.1 L, Triglycerides 145, Cholesterol 97, LDL Cholesterol 43 L, VLDL Cholesterol 29, HDL Cholesterol 25 L, Cholesterol/HDL Ratio 3.8 11/29/18 06:00: WBC 8.6 D, RBC 4.55 L, Hgb 12.9 L, Hct 39.5 L, MCV 86.8, MCH 28.4, MCHC 32.7, RDW 16.9 H, Plt Count 127 L, MPV 10.0, Immature Gran % (Auto) 0.50 H, Immature Gran # (Auto) 0.04 H, Neutrophils % 75.9 H, Lymphocytes % 10.3 L, Monocytes % 10.5 H, Eosinophils % 2.6, Basophils % 0.2, Nucleated RBC % 0.0, Neutrophils # 6.5 H, Lymphocytes # 0.88 L, Monocytes # 0.9, Eosinophils # 0.2, Absolute Basophils 0.0 11/29/18 06:00: Sodium 144 H, Plasma Sodium 145 H, Potassium 3.5, Chloride 112 H, Carbon Dioxide 20.1 L, Anion Gap 15.4 H, BUN 71 H, Creatinine 1.88 H D, Est GFR (Non-Af Amer) 36 L D, BUN/Creatinine Ratio 37.8 H, Random Glucose 143 H, Calcium 7.5 L, Calcium Adj for Albumin 8.8, Total Bilirubin 0.7, AST 203 H, ALT 91 H, Alkaline Phosphatase 116, Creatine Kinase 2762 H, Total Protein 5.3 L, Albumin 2.0 L 11/30/18 05:40: WBC 9.3, RBC 4.33 L, Hgb 12.5 L, Hct 37.8 L, MCV 87.3, MCH 28.9, MCHC 33.1, RDW 16.4 H, Plt Count 117 L, MPV 10.2, Immature Gran % (Auto) 0.50 H, Immature Gran # (Auto) 0.05 H, Neutrophils % 75.5 H, Lymphocytes % 9.0 L, Monocytes % 10.0 H, Eosinophils % 4.8 H, Basophils % 0.2, Nucleated RBC % 0.0, Neutrophils # 7.0 H, Lymphocytes # 0.84 L, Monocytes # 0.9, Eosinophils # 0.5, Absolute Basophils 0.0 11/30/18 05:40: Sodium 137, Plasma Sodium 137, Potassium 3.5, Chloride 108 H, Carbon Dioxide 20.6 L, Anion Gap 11.9, BUN 47 H, Creatinine 1.35 D, Est GFR (Non-Af Amer) 53 L D, BUN/Creatinine Ratio 34.8 H, Random Glucose 109, Calcium 7.7 L, Calcium Adj for Albumin 9.0, Total Bilirubin 0.9, AST 152 H, ALT 83 H, Alkaline Phosphatase 116, Total Protein 5.2 L, Albumin 2.0 L 11/30/18 05:40: Creatine Kinase 2019 H 11/30/18 14:39: Urine Color Yellow, Urine Appearance Clear, Urine pH 5.5, Ur Specific [place] 1.015, Urine Protein Negative, Urine Glucose (UA) Negative, Urine Ketones Negative, Urine Blood 25 H, Urine Nitrate Negative, Urine Bilirubin Negative, Urine Urobilinogen Normal, Ur Leukocyte Esterase Negative, Urine RBC 0-5, Urine WBC 0-5, Ur Epithelial Cells 0-5, Urine Bacteria Trace, Urine Comment Culture ordered L 11/30/18 14:45: WBC 10.4, RBC 4.28 L, Hgb 12.5 L, Hct 37.2 L, MCV 86.9, MCH 29.2, MCHC 33.6, RDW 16.4 H, Plt Count 115 L, MPV 10.2, Immature Gran % (Auto) 0.40, Immature Gran # (Auto) 0.04 H, Neutrophils % 79.9 H, Lymphocytes % 8.7 L, Monocytes % 8.2, Eosinophils % 2.6, Basophils % 0.2, Nucleated RBC % 0.0, Neutrophils # 8.3 H, Lymphocytes # 0.91 L, Monocytes # 0.9, Eosinophils # 0.3, Absolute Basophils 0.0 11/30/18 14:45: Sodium 140, Plasma Sodium 140, Potassium 3.5, Chloride 108 H, Carbon Dioxide 21.4 L, Anion Gap 14.1 H, BUN 52 H, Creatinine 1.47 H, Est GFR (Non-Af Amer) 48 L, BUN/Creatinine Ratio 35.4 H, Random Glucose 95, Calcium 7.9, Calcium Adj for Albumin 9.2, Total Bilirubin 0.9, AST 127 H, ALT 75 H, Alkaline Phosphatase 112, Total Protein 5.3 L, Albumin 2.0 L 12/01/18 05:40: WBC 10.3, RBC 4.38 L, Hgb 12.8 L, Hct 38.4 L, MCV 87.7, MCH 29.2, MCHC 33.3, RDW 16.4 H, Plt Count 113 L, MPV 10.0, Immature Gran % (Auto) 0.70 H, Immature Gran # (Auto) 0.07 H, Neutrophils % 80.0 H, Lymphocytes % 8.4 L, Monocytes % 8.5, Eosinophils % 2.2, Basophils % 0.2, Nucleated RBC % 0.0, Neutrophils # 8.2 H, Lymphocytes # 0.86 L, Monocytes # 0.9, Eosinophils # 0.2, Absolute Basophils 0.0 12/01/18 05:40: Sodium 142, Plasma Sodium 142, Potassium 3.2 L, Chloride 106, Carbon Dioxide 25.9, Anion Gap 13.3, BUN 45 H, Creatinine 1.55 H, Est GFR (Non- Af Amer) 46 L, BUN/Creatinine Ratio 29.0 H, Random Glucose 94, Calcium 8.1, Calcium Adj for Albumin 9.4, Total Bilirubin 1.0, AST 117 H, ALT 73 H, Alkaline Phosphatase 111, Creatine Kinase 1598 H, Total Protein 5.7 L, Albumin 2.0 L Discharge Location: [facility] Disposition: Inpatient Rehab Facility Condition: Fair Discharge Activity: Activity as tolerated Discharge Diet: Mech soft Additional Patient Instructions (free text): -Please make TCM appointment unless fdc discharge. Thank you! Vy @ [phone]. Complete Home Medications List: Complete Home Medication List: Allopurinol [Zyloprim (Allopurinol)] 200 mg PO DAILY 11/27/18 Aspirin [Aspirin EC] 81 mg PO DAILY 11/27/18 Benazepril HCl 5 mg PO DAILY 11/27/18 Calc/D3/Mag/Zn/[place]line/Luis Eduardo/[place] [Calcium 600 mg Plus Vit D Tab] 1 ea PO QPM 11/27/18 DULoxetine HCL [Cymbalta] 30 mg PO DAILY PRN 11/27/18 Finasteride [Proscar] 5 mg PO DAILY 11/27/18 Glucosam/Chondr/Collagn/Hyalur [Glucosamine & Chondroitin Cap] 1 ea PO DAILY 11/27/18 HYDROcodone/ACETAMINOPHEN [[place] 10-325 Tablet] 1 ea PO BID PRN 11/27/18 Isosorbide Mononitrate [Imdur] 30 mg PO DAILY 11/27/18 Magnesium 100 mg PO BID 11/27/18 Methylcellulose [Citrucel] 479 gm PO DAILY 11/27/18 Metoprolol Tartrate [Lopressor] 50 mg PO BID 11/27/18 Modafinil [Provigil] 100 mg PO BID PRN 11/27/18 Nitroglycerin 0.4 mg SUBLINGUAL Q5M PRN 11/27/18 Ly[place]-3 Acid Ethyl Esters [Lovaza] 2 gm PO BID 11/27/18 Rivaroxaban [Xarelto] 15 mg PO QPM 11/27/18 Torsemide [Demadex] 10 mg PO PRN PRN 11/27/18 rOPINIRole HCL [Requip] 0.25 mg PO QPM 11/27/18
[2018-12-01] MEDS: MUPIROCIN 22 APPL TUBE TP SCH ×2 (09:31→21:31)
[2018-12-01] MEDS: ASPIRIN 81 MG TABLET.DR PO SCH (09:31)
[2018-12-01] MEDS: FINASTERIDE 5 MG TABLET PO SCH (09:31)
[2018-12-01] MEDS: COLLAGENASE CLOSTRIDIUM HIST. 30 APPL TUBE TP SCH (09:32)
[2018-12-01] MEDS: ISOSORBIDE MONONITRATE 30 MG TAB.SR.24H PO SCH (09:32)
--- NOTE | 2018-12-01 15:31 | PN ---
Subjective - Date and Time Seen Date: 12/01/18 Time: 14:56 Subjective Narrative: Denies chest pain, abdominal pain or SOB. Poor appetite, tired, sleepy. Feels cold. Objective - Review of Systems Generalized/Overall Review: Reports: Chills. Denies: Fever Respiratory: Denies: Shortness of Breath Cardiac: Denies: Chest Pain Abdominal: Denies: Abdominal Pain Genitourinary Symptoms: Reports: Incontinent Skin: Reports: Lesions Misc: All systems neg except as marked - Vitals Vitals: Last Vital Signs Temp 36.7 C 12/01/18 13:40 Pulse 122 H 12/01/18 13:40 Resp 24 H 12/01/18 13:40 BP 104/54 12/01/18 13:40 Pulse Ox 98 12/01/18 13:40 - Abnormal Lab Findings Abnormal Lab Findings: Abnormal Lab Results 11/30/18 11/30/18 11/30/18 Range/Units 14:39 14:45 14:45 RBC 4.28 L (4.7-6.0) M/mm3 Hgb 12.5 L (13.5-18.0) gm/dL Hct 37.2 L (42.0-52.0) % RDW 16.4 H (11.5-14.0) % Plt Count 115 L (150-450) K/mm3 Immature Gran % (Auto) (0.001-0.429) % Immature Gran # (Auto) 0.04 H (0.000-0.0310) K/mm3 Neutrophils % 79.9 H (42-75.0) % Lymphocytes % 8.7 L (20-51) % Neutrophils # 8.3 H (1.3-6.0) K/mm3 Lymphocytes # 0.91 L (1.5-3.5) k/mm3 Potassium (3.4-4.6) mmol/L Chloride 108 H (97-106) mmol/L Carbon Dioxide 21.4 L (24-32.6) mmol/L Anion Gap 14.1 H (6.8-13.8) mmol/L BUN 52 H (6-23) mg/dL Creatinine 1.47 H (0.4-1.4) mg/dL Est GFR (Non-Af Amer) 48 L (60-130) mL/min BUN/Creatinine Ratio 35.4 H (9.0-21.6) AST 127 H (0-48) U/L ALT 75 H (19-67) U/L Creatine Kinase (0-259) U/L Total Protein 5.3 L (6.2-8.2) gm/dL Albumin 2.0 L (3.4-5.0) gm/dl Urine Blood 25 H (NEGATIVE) /ul Urine Comment Culture ordered L 12/01/18 12/01/18 Range/Units 05:40 05:40 RBC 4.38 L (4.7-6.0) M/mm3 Hgb 12.8 L (13.5-18.0) gm/dL Hct 38.4 L (42.0-52.0) % RDW 16.4 H (11.5-14.0) % Plt Count 113 L (150-450) K/mm3 Immature Gran % (Auto) 0.70 H (0.001-0.429) % Immature Gran # (Auto) 0.07 H (0.000-0.0310) K/mm3 Neutrophils % 80.0 H (42-75.0) % Lymphocytes % 8.4 L (20-51) % Neutrophils # 8.2 H (1.3-6.0) K/mm3 Lymphocytes # 0.86 L (1.5-3.5) k/mm3 Potassium 3.2 L (3.4-4.6) mmol/L Chloride (97-106) mmol/L Carbon Dioxide (24-32.6) mmol/L Anion Gap (6.8-13.8) mmol/L BUN 45 H (6-23) mg/dL Creatinine 1.55 H (0.4-1.4) mg/dL Est GFR (Non-Af Amer) 46 L (60-130) mL/min BUN/Creatinine Ratio 29.0 H (9.0-21.6) AST 117 H (0-48) U/L ALT 73 H (19-67) U/L Creatine Kinase 1598 H (0-259) U/L Total Protein 5.7 L (6.2-8.2) gm/dL Albumin 2.0 L (3.4-5.0) gm/dl Urine Blood (NEGATIVE) /ul Urine Comment - Exam Constitutional: Present: Cooperative, No distress, Lethargic, Elderly ENT Exam: Present: hearing grossly normal Respiratory: Present: lungs clear, No wheezing. Absent: crackles, rhonchi Cardiovascular/Chest: Present: normal peripheral pulses, no edema Abdomen: Present: Normal bowel sounds, soft, nontender Skin Exam: Present: normal color, warm/dry, other - Multiple abrasions, bruises on bilateral upper and lower extremities. Eye contact: Present: cooperative Assessment/Plan - Problems/Diagnosis (1) Hypotension Problem: Resolved Qualifiers: Hypotension type: hypotension due to hypovolemia Qualified Code(s): I95.89 - Other hypotension; E86.1 - Hypovolemia Narrative: Resolved with IV fluids. (2) Altered mental status Problem: Acute Qualifiers: Altered mental status type: delirium Qualified Code(s): R41.0 - Disorientation, unspecified Narrative: Improved. Likely secondary to delirium in the setting of multiple medical abnormalities. (3) Rhabdomyolysis Problem: Resolved Qualifiers: Rhabdomyolysis type: traumatic Encounter type: initial encounter Qualified Code(s): T79.6XXA - Traumatic ischemia of muscle, initial encounter Narrative: CK downtrending after aggressive IV fluid hydration. Patient appeared to be getting fluid overloaded therefore IV fluids discontinued. Continue with oral hydration. (4) LOBO (acute kidney injury) Problem: Resolved Narrative: Resolved, patient is back to his baseline renal function. (5) Atrial fibrillation with RVR Problem: Chronic Narrative: Rate controlled, continue with anticoagulation (Xarelto). (6) HTN (hypertension) Problem: Chronic Qualifiers: Hypertension type: essential hypertension Qualified Code(s): I10 - Essential (primary) hypertension Narrative: Well-controlled no changes to medications continue holding benazepril. (7) Lactic acid acidosis Problem: Resolved Narrative: Resolved. (8) Elevated LFTs Problem: Acute Narrative: Improving likely secondary to anorexia, when the patient was on the floor for several days and his home unable to get up. (9) Acute hypernatremia Problem: Resolved Narrative: Resolved. (10) Skin abrasion Problem: Acute Narrative: Continue with wound care management per wound care team. (11) Urinary retention due to benign prostatic hyperplasia Problem: Acute Narrative: Resolved continue with finasteride. (12) Left hip pain Problem: Acute Narrative: Likely secondary to the fall. Continue with Tylenol as needed for pain, no fracture noted on hip x-ray. (13) Unsteady gait Problem: Acute Narrative: Continue with physical therapy and occupational therapy. Awaiting placement into a rehab facility per PT recommendations (14) CVA (cerebral vascular accident) Problem: Ruled-out Qualifiers: Precerebral and cerebral artery: middle cerebral artery Laterality of affected vessel: right Narrative: No stroke noted on the MRI, on November 29, 2018. (15) Hypokalemia Problem: Acute Narrative: Replete as needed. Likely secondary to decreased oral intake (16) HAP (hospital-acquired pneumonia) Problem: Acute Narrative: Left lower lobe infiltrate noted on chest x-ray performed on November 30, 2018. Continue with Levaquin
[2018-12-01] MEDS: RIVAROXABAN 15 MG TABLET PO SCH (17:14)
[2018-12-01] MEDS: LEVOFLOXACIN IN DEXTROSE 5 % 750 MG/150 ML BAG IV SCH (17:26)
[2018-12-01] MEDS: traMADol HCL 50 MG TABLET PO PRN (21:27)
[2018-12-02] MEDS: ACETAMINOPHEN 325 MG TABLET PO PRN ×2 (00:45→16:15)
[2018-12-02] MEDS: ALBUTEROL SULFATE/IPRATROPIUM 3 ML NEBU IH PRN (04:54)
[2018-12-02 07:27] LABS: Hematocrit 33.5 % (42.0-52.0); Hemoglobin 11.3 gm/dL (13.5-18.0); Mean Cell Volume 86.3 fl (78-100); Mean Corpuscular Hemoglobin 29.1 pg (27-31); Mean Corpuscular Hgb Conc 33.7 g/dl (32-36); Mean Platelet Volume 10.8 fl (8-11.3); Neutrophil # 7.2 K/mm3 (1.3-6.0); Neutrophil % 74.2 % (42-75.0); Platelet Count 134 K/mm3 (150-450); Red Blood Count 3.88 M/mm3 (4.7-6.0); Red Cell Distribution Width 16.2 % (11.5-14.0); White Blood Count 9.8 K/mm3 (4.0-10.5)
[2018-12-02 07:46] LABS: Albumin * 1.7 gm/dl (3.4-5.0); Anion Gap 11.8 mmol/L (6.8-13.8); BUN/Creatinine Ratio 31.3 (9.0-21.6); Bilirubin, Total 0.9 mg/dL (0.0-1.1); Ca. Corrected For Albumin 9.4 mg/dL (8.4-10.2); Calcium * 7.9 mg/dL (7.9-10.9); Carbon Dioxide 24.9 mmol/L (24-32.6); Potassium 3.7 mmol/L (3.4-4.6); Total Protein 5.1 gm/dL (6.2-8.2)
[2018-12-02] MEDS: ISOSORBIDE MONONITRATE 30 MG TAB.SR.24H PO SCH (09:07)
[2018-12-02] MEDS: COLLAGENASE CLOSTRIDIUM HIST. 30 APPL TUBE TP SCH (09:07)
[2018-12-02] MEDS: METOPROLOL TARTRATE 50 MG TABLET PO SCH (09:07)
[2018-12-02] MEDS: ASPIRIN 81 MG TABLET.DR PO SCH (09:07)
[2018-12-02] MEDS: FINASTERIDE 5 MG TABLET PO SCH (09:07)
[2018-12-02 16:22] VITALS: BP 100/53
== END 2018-12-02 16:43 | disposition short-term general hospital (02) | DRG 564 ==
LOC: ER 19:40 → MS 21:30
PROVIDERS: ADMIT Internal Medicine; ATTEND Internal Medicine
DX: G25.81 Restless legs syndrome; R82.71 Bacteriuria; Z79.01 Long term (current) use of anticoagulants; S80.211A Abrasion, right knee, initial encounter; I12.9 Hypertensive chronic kidney disease with stage 1 through stage 4 chronic kidney disease, or unspecified chronic kidney disease; R33.9 Retention of urine, unspecified; G62.9 Polyneuropathy, unspecified; S30.811A Abrasion of abdominal wall, initial encounter; E86.1 Hypovolemia; I25.2 Old myocardial infarction; S00.81XA Abrasion of other part of head, initial encounter; R94.5 Abnormal results of liver function studies; N17.9 Acute kidney failure, unspecified; L98.499 Non-pressure chronic ulcer of skin of other sites with unspecified severity; J18.1 Lobar pneumonia, unspecified organism; S50.12XA Contusion of left forearm, initial encounter; S50.11XA Contusion of right forearm, initial encounter; R26.81 Unsteadiness on feet; R63.0 Anorexia; E87.2 Acidosis; M10.9 Gout, unspecified; S80.01XA Contusion of right knee, initial encounter; S00.03XA Contusion of scalp, initial encounter; T79.6XXA Traumatic ischemia of muscle, initial encounter; R41.0 Disorientation, unspecified; M25.552 Pain in left hip; E86.0 Dehydration; S80.212A Abrasion, left knee, initial encounter; S40.812A Abrasion of left upper arm, initial encounter; I48.2 Chronic atrial fibrillation; N18.9 Chronic kidney disease, unspecified; Z88.1 Allergy status to other antibiotic agents; Y95 Nosocomial condition; Z79.82 Long term (current) use of aspirin; E87.6 Hypokalemia; M25.512 Pain in left shoulder; N40.1 Benign prostatic hyperplasia with lower urinary tract symptoms; V00.811A Fall from moving wheelchair (powered), initial encounter; B95.2 Enterococcus as the cause of diseases classified elsewhere; Z68.28 Body mass index [BMI] 28.0-28.9, adult; E87.0 Hyperosmolality and hypernatremia; I95.9 Hypotension, unspecified
CPT/HCPCS: 36415; 70450; 70553; 71010; 71045; 73502; 80053; 80061; 81001; 82550; 83605; 85025; 86140; 87040; 87077; 87086; 87186; 92526; 92610; 93005; 94640; 94664; 96361; 96374; 97110; 97116; 97162; 97165; 97530; 97535; 99285